=== PATIENT | female | born 1965 | race Caucasian/White ===

== ENCOUNTER → 2016-12-15 | Outpatient (REF) | payer OTHER ==
[2016-12-15 10:45] LABS: BASOPHILS % (AUTO) 0 % (0-2); EOSINOPHILS # (AUTO) 0.3 10^3uL; EOSINOPHILS % (AUTO) 4 % (0-4); LYMPHOCYTES # (AUTO) 3.7 X10^3; MEAN CORPUSCULAR HEMOGLOBIN 30.3 PG (26.0-34.0); MEAN CORPUSCULAR HGB CONC 33.3 g/dL (31.0-37.0); MEAN CORPUSCULAR VOLUME 91 FL (80-100); MEAN PLATELET VOLUME 10.5 FL (6.0-9.5); MONOCYTES # (AUTO) 0.6 X10^3; MONOCYTES % (AUTO) 7 % (3-11); NEUTROPHILS # (AUTO) 3.8 X10^3; NEUTROPHILS % (AUTO) 45 % (51-67); PLATELET COUNT 279 10^3uL (150-450); WHITE BLOOD COUNT 8.35 10^3uL (4.0-11.0)
[2016-12-15 10:51] LABS: ALBUMIN 4.6 g/dL (3.4-5.0); ANION GAP 16.6 MEQ/L (3-15); CALCULATED IONIZED CALCIUM 4.3 mg/dL (3.8-4.6); TOTAL PROTEIN 7.8 g/dL (6.4-8.5)
== END ==
LOC: LAB 10:00
PROVIDERS: ATTEND Nurse Practitioner Family
DX: R53.83 Other fatigue (principal); E03.4 Atrophy of thyroid (acquired)
CPT/HCPCS: 80053; 84443; 85025

== ENCOUNTER → 2017-01-03 | Outpatient (CLI) | payer OTHER | LOC: RAD 10:28 | PROVIDERS: ATTEND Family Medicine | DX: Z12.31 Encounter for screening mammogram for malignant neoplasm of breast (principal); H92.02 Otalgia, left ear | CPT/HCPCS: 70480; 76376; G0202 ==

== ENCOUNTER → 2017-02-14 | Outpatient (REF) | payer OTHER ==
[2017-02-14 08:19] LABS: BASOPHILS % (AUTO) 0 % (0-2); EOSINOPHILS # (AUTO) 0.3 10^3uL; EOSINOPHILS % (AUTO) 4 % (0-4); LYMPHOCYTES # (AUTO) 2.9 X10^3; MEAN CORPUSCULAR HEMOGLOBIN 30.3 PG (26.0-34.0); MEAN CORPUSCULAR HGB CONC 33.2 g/dL (31.0-37.0); MEAN CORPUSCULAR VOLUME 91 FL (80-100); MEAN PLATELET VOLUME 10.2 FL (6.0-9.5); MONOCYTES # (AUTO) 0.6 X10^3; MONOCYTES % (AUTO) 8 % (3-11); NEUTROPHILS # (AUTO) 3.6 X10^3; NEUTROPHILS % (AUTO) 49 % (51-67); PLATELET COUNT 240 10^3uL (150-450)
== END ==
LOC: LAB 08:01
PROVIDERS: ATTEND Nurse Practitioner Family
DX: R04.0 Epistaxis (principal); E03.4 Atrophy of thyroid (acquired); E11.42 Type 2 diabetes mellitus with diabetic polyneuropathy
CPT/HCPCS: 83036; 84443; 85025

== ENCOUNTER 2017-02-22 03:00 | Emergency (ER) | payer OTHER ==
[~2017-02-22] VITALS: Ht 154.9 cm; Wt 106.1 kg
[~2017-02-22 03:00] MED LIST: ALBU8.5H4 IH; ASPI-860 PO; ATOR40TA2 PO; AZIT250T81 PO; BUTA1CAP43 PO; DICL75TA2 PO; LEVO100T; LEVO150T6 PO; LEVO75TA PO; LISI5TAB14 PO; METF500T4 PO; METH4TAB27 PO; METO-311 PO; MTF500TCR PO; ONDAN4ODT PO; PRCD5U GT; PROM25TA5 PO; TRM50T
--- OUTSIDE RECORDS SUMMARY | 2017-02-22 03:03 | XMS REPORT | Continuity of Care Document ---
Author Author [facility] Address Unknown Phone Unavailable Care Team Providers Care End Trimmer Name Role Phone JENNIFER VALENCIA MD PCP [phone] Insurance Providers Payer Name Policy Number Subscriber Name Relationship [employer] [id number] Tomasa Bazan Self / Same As Patient Advance Directives Directive Response Recorded Date/Time Advanced Directives No 08/04/16 9:16am Chief Complaint and Reason for Visit Chief Complaint Cardiac Complaint Reason for Visit [id number] Problems Active Problems Medical Problem Onset Date Status Acute bronchitis 01/06/2013 Acute Costochondritis Unknown Acute Dehydration Unknown Acute Diabetes mellitus type 2 in obese Unknown Acute Encounter for screening colonoscopy Unknown Acute Hyperlipidemia Unknown Acute Hypertension Unknown Acute Migraine Unknown Acute Nausea and vomiting 10/25/2012 Acute Obesity Unknown Acute Medications Current Home Medications Medication Dose Units Route Directions Days/Qty Instructions Start Date Levothyroxine Sodium 150 Mcg 150 Mcg ORAL Daily@0700 08/05/15 Metformin Hcl (Glucophage Xr) 500 Mg 1,000 Mg ORAL Twice A Day 08/05 Atorvastatin Calcium 40 Mg 40 Mg ORAL Daily 06/11/16 Lisinopril (Zestril) 5 Mg 5 Mg ORAL Daily 06/11/16 Aspirin 81 Mg 81 Mg ORAL Daily 06/11/16 Past Home Medications Medication Directions Ordered Status Tramadol Hcl (Ultram) 50 Mg Tablet, 09/25/12 Discontinued Levothyroxine Sodium 100 Mcg Tablet, 09/25/12 Discontinued Promethazine Hcl 25 Mg Tablet, 1 Tab Oral Q 6H Prn 09/25/12 Discontinued Ondansetron Hcl 4 Mg Tab, 1 - 2 Tab Oral Every 6 Hours as needed 10/25/12 Discontinued Levothyroxine Sodium 75 Mcg Tablet, 100 Mcg Oral Daily 01/06/13 Discontinued Azithromycin 6 Tab/Pkt Tablet, 250 Mg Oral See Instructions 01/06/13 Discontinued Promethazine/Codeine (Promethazine/Codeine 6.25MG-10MG/5ML) 5 Ml Syrp, 5 - 10 Ml G Tube Every 6 Hours as needed 01/06/13 Discontinued Methylprednisolone 21 Tab/Pkt Tablet, 21 Tab Oral As Directed 01/06/13 Discontinued Albuterol Sulfate 8.5 Gm Hfa.aer.ad, 8.5 Gm Respiratory (Inhalation) Every 4HRS as needed 01/06/13 Discontinued Metformin Hcl (Glucophage) 500 Mg Tablet, 500 Mg Oral Daily 08/04/15 Discontinued Butalbit/Acetamin/Caff/Codeine 1 Each Capsule, 1 Each Oral Twice A Day as needed for Headache 11/22/15 Discontinued Metoclopramide Hcl 10 Mg Tablet, 10 Mg Oral Twice A Day as needed for Na 01/06 Discontinued Diclofenac Sodium 75 Mg Tablet.dr, 75 Mg Oral Twice A Day 06/11/16 Discontinued Social History Social History Problem Response Recorded Date/Time Onset Date Status Exposure to occupational hazards No 08/04/2015 11:52pm Query Response Start Date Stop Date Smoking Status Former smoker Hospital Discharge Instructions No hospital discharge instructions. Plan of Care Discharge Date 08/04/16 11:22am Disposition 01 HOME OR SELF-CARE Condition at Discharge Stable Instructions/Education Provided Chest Pain (ED) Costochondritis (ED) Prescriptions See Medication Section Referrals JENNIFER VALENCIA MD - Additional Instructions/Education Your cardiac tests today were normal. Your chest pain may be due to inflammation of your rib cartilages as we discussed, something called costochondritis. If this continues to be bothersome, you may treat it by taking Motrin 800 mg 3 times a day. You should also contact Dr. Collado's office later today to arrange follow-up care. Because you have risk factors for coronary artery disease, he may want you to have a stress test and an echocardiogram to complete your evaluation. If you have more typical angina type symptoms including persistent chest pain pressure or heaviness lasts more than just a few seconds, typically 5 or 10 minutes or longer, that's associated with nausea vomiting sweating, radiation of pain in your shoulders or arms neck trauma or back, with shortness of breath, you should call 911 or seek immediate medical attention. He should continue to take aspirin 81 mg every day for prevention of stroke and heart attack. Some of your test results may not be complete prior to your leaving the Emergency Department. The Emergency Department is not authorized to give test results over the phone. Please contact the doctor's office listed in this packet of information for your final results. Follow up with your primary care physician or return to the Emergency Department for worsening or worrisome symptoms. * Emergency Department phone number: [phone], x [phone]* MEDICAL RECORD If you need copies of your X-rays, call [phone]. If you need copies of your medical record, including lab results, a signed authorization for release of records will be required. A telephone call for release of Health Information is not allowed. BILLING Billing can sometimes be confusing and frustrating. To help avoid confusion in the future, please take a moment to acquaint yourself with the billing parties for services. SERVICE BILLING [employer] Emergency Room Services [facility] Physician Services [facility] X-[facility] Patients will receive bills for services from the appropriate provider. If you have any questions about your [facility] bill, our staff will be happy to assist you. Please call [phone], and ask for the billing department. THANK YOU for choosing [facility] as your emergency care provider! Care Plan and Goals ~~Discharge Care Plan~~ Problem: Chest, epigastric or chest wall pain Goal: Decreased pain Instructions: Take medication(s) as directed. Follow home discharge instructions. Follow up with primary care physician or corporate real estate specialist as directed. Functional Status No functional status results. Allergies, Adverse Reactions, Alerts No known allergies. Immunizations Name Given Type Status Date Influenza Vaccine Received if Current 10/03/15 Historical Historical Vital Signs Acute Vital Signs Vital Response Date/Time Temperature (Fahrenheit) 97.4 08/04/2016 11:27am Pulse 68 bpm 08/04/2016 11:27am Respirations 20 08/04/2016 11:27am Height 5 ft 1 in Weight 231 lb Body Mass Index 43.0 kg/m^2 Results Laboratory Results Test Name Result Units Flags Reference Collection Date/Time Result Date/ Time Comments White Blood Count 6.92 10^3uL 4.0-11.0 08/04/2016 9:3008/04/2016 9: 48am Red Blood Count 3.87 10^6uL L 4.00-5.00 08/04/2016 9:3008/04/2016 9: 48am Hemoglobin 12.0 g/dL 12.0-15.5 08/04/2016 9:3008/04/2016 9:48am Hematocrit 36.00 % 35.00-45.00 08/04/2016 9:3008/04/2016 9:48am Mean Corpuscular Volume 93 FL 80-100 08/04/2016 9:3008/04/2016 9: 48am Mean Corpuscular Hemoglobin 31.0 PG 26.0-34.0 08/04/2016 9:302015 9:48am Mean Corpuscular Hemoglobin Concent 33.3 g/dL 31.0-37.0 08/04/2016 9: 3008/04/2016 9:48am Red Cell Distribution Width 13.0 % 11.8-15.6 08/04/2016 9:302015 9:48am Platelet Count 221 10^3uL 150-450 08/04/2016 9:3008/04/2016 9:48am Mean Platelet Volume 10.2 FL H 6.0-9.5 08/04/2016 9:3008/04/2016 9: 48am Neutrophils (%) (Auto) 59 % 51-67 08/04/2016 9:3008/04/2016 9:48am Lymphocytes (%) (Auto) 30 % 20-46 08/04/2016 9:30am 08/04/2016 9:48am Monocytes (%) (Auto) 7 % 3-11 08/04/2016 9:30am 08/04/2016 9:48am Eosinophils (%) (Auto) 4 % 0-4 08/04/2016 9:30am 08/04/2016 9:48am Basophils (%) (Auto) 0 % 0-2 08/04/2016 9:30am 08/04/2016 9:48am Neutrophils # (Auto) 4.1 X10^3 08/04/2016 9:30am 08/04/2016 9:48am Lymphocytes # (Auto) 2.1 X10^3 08/04/2016 9:30am 08/04/2016 9:48am Monocytes # (Auto) 0.5 X10^3 08/04/2016 9:30am 08/04/2016 9:48am Eosinophils # (Auto) 0.3 10^3uL 08/04/2016 9:30am 08/04/2016 9:48am Basophils # (Auto) 0.0 10^3uL 08/04/2016 9:30am 08/04/2016 9:48am Prothrombin Time 12.1 SEC 11.6-14.2 08/04/2016 9:30am 08/04/2016 9: 58am Prothromb Time International Ratio 0.9 0.8-1.4 08/04/2016 9:30am 9:58am D-Dimer 0.43 ug/mL *H 0.00-0.41 08/04/2016 9:30am 08/04/2016 9:58am Results called to [facility] who read back the results. Called by Malathi Hill at [phone] Urine Collection Type CLEAN CATCH 08/04/2016 10:45am 08/04/2016 11: 08am Urine Color Yellow 08/04/2016 10:45am 08/04/2016 11:02am Urine Clarity Clear 08/04/2016 10:45am 08/04/2016 11:02am Urine pH 6.0 5.0 - 8.0 08/04/2016 10:45am 08/04/2016 11:02am Urine Specific Jordan 1.025 1.005-1.030 08/04/2016 10:45am 2015 11:02am Urine Protein Negative Negative 08/04/2016 10:45am 08/04/2016 11: 02am Urine Glucose (UA) Negative Negative 08/04/2016 10:45am 08/04/2016 11 :02am Urine RBC (Auto) Negative Negative 08/04/2016 10:45am 08/04/2016 11: 02am Urine Ketones Negative Negative 08/04/2016 10:45am 08/04/2016 11: 02am Urine Nitrite Negative Negative 08/04/2016 10:45am 08/04/2016 11: 02am Urine Bilirubin Negative Negative 08/04/2016 10:45am 08/04/2016 11: 02am Urine Urobilinogen 0.2 mg/dL 0.2-1.0 08/04/2016 10:45am 08/04/2016 11: 02am Urine Leukocyte Esterase Negative Negative 08/04/2016 10:45am 2015 11:02am Sodium Level 145 mmol/L 135-150 08/04/2016 9:30am 08/04/2016 10:19am Potassium Level 4.5 mmol/L 3.5-5.1 08/04/2016 9:30am 08/04/2016 10: 19am Chloride Level 107 mmol/L 98-108 08/04/2016 9:30am 08/04/2016 10:19am Carbon Dioxide Level 25 mmol/L 22-08/04/2016 9:30am 08/04/2016 10: 19am Anion Gap 17.2 MEQ/L H 3-15 08/04/2016 9:30am 08/04/2016 10:19am Blood Urea Nitrogen 19 mg/dL H 7-18 08/04/2016 9:30am 08/04/2016 10: 19am Creatinine 0.72 mg/dL 0.6-1.2 08/04/2016 9:30am 08/04/2016 10:19am BUN/Creatinine Ratio 26 H 10-20 08/04/2016 9:30am 08/04/2016 10:19am Estimat Glomerular Filtration Rate 103.3 08/04/2016 9:30am 2015 10:19am Estimated GFR (Non- 85.4 08/04/2016 9:30am 2015 10:19am Glucose Level 102 mg/dL # 70-110 08/04/2016 9:3008/04/2016 10:19am Calculated Osmolality 282 mosm/L 280-300 08/04/2016 9:3008/04/2016 10:19am Calcium Level 9.4 mg/dL 8.8-10.8 08/04/2016 9:3008/04/2016 10:19am Calcium/Ionized Calcium Ratio 4.2 mg/dL 3.8-4.6 08/04/2016 9:3008/04 10:19am Total Bilirubin 0.4 mg/dL 0.1-1.0 08/04/2016 9:3008/04/2016 10:19am Alkaline Phosphatase 65 U/L 38-126 08/04/2016 9:3008/04/2016 10: 19am Aspartate Amino Transf (AST/SGOT) 26 U/L 15-37 08/04/2016 9:30am 2015 10:19am Alanine Aminotransferase (ALT/SGPT) 33 U/L 30-65 08/04/2016 9:30 10:19am Total Creatine Kinase 283 U/L *H 30-135 08/04/2016 9:3008/04/2016 10: 19am Results called to [facility] who read back the results. Called by Malathi Hill at 1018 Creatine Kinase MB 3.2 ng/mL 0.0-6.0 08/04/2016 9:3008/04/2016 10: 26am Troponin I < 0.012 ng/mL 0.010-0.080 08/04/2016 9:3008/04/2016 10: 26am OL-Qra-Z-Type Natriuretic Peptide 182 pg/mL H 0-125 08/04/2016 9:30 10:26am <300 ng/mL - HF unlikely Age <50 years, NT-proBNP >450 pg/mL - HF Likely Age 50-75 yrs, NT-proBNP >900 pg/mL - HF Likely Age >75 yrs, NT-proBNP >1800 - HF likely Total Protein 7.0 g/dL 6.4-8.5 08/04/2016 9:30am 08/04/2016 10:19am Albumin 4.2 g/dL 3.4-5.0 08/04/2016 9:30am 08/04/2016 10:19am Albumin/Globulin Ratio 1.500 1.1-1.8 08/04/2016 9:30am 08/04/2016 10: 19am Procedures No known history of procedures. Encounters Encounter Location Arrival/Admit Date Discharge/Depart Date Attending Provider Registered Emergency Room [facility] 08/04/16 9:09am KATHY BUSBY DO Registered Clinic [facility] 08/04/16 8:55am KATHY BUSBY DO Recent Diagnosis
[2017-02-22] MEDS ORDERED: ONDANSETRON 2 MG/ML (Z0FRAN) 2 ML VIAL IV ONE (03:20)
[2017-02-22] MEDS ORDERED: NS IV 500 ML 500 ML IV SCH (03:20)
[2017-02-22] MEDS ORDERED: SODIUM CHLORIDE FLUSH 3 ML SYR IV ONE (03:20)
[2017-02-22] MEDS ORDERED: SODIUM CHLORIDE FLUSH 10 ML SYR IV PRN (03:20)
[2017-02-22 03:36] LABS: BASOPHILS % (AUTO) 0 % (0-2); EOSINOPHILS # (AUTO) 0.2 10^3uL; EOSINOPHILS % (AUTO) 2 % (0-4); LYMPHOCYTES # (AUTO) 2.9 X10^3; MEAN CORPUSCULAR HEMOGLOBIN 30.1 PG (26.0-34.0); MEAN CORPUSCULAR HGB CONC 33.7 g/dL (31.0-37.0); MEAN CORPUSCULAR VOLUME 89 FL (80-100); MEAN PLATELET VOLUME 10.1 FL (6.0-9.5); MONOCYTES # (AUTO) 0.6 X10^3; MONOCYTES % (AUTO) 7 % (3-11); NEUTROPHILS # (AUTO) 5.1 X10^3; NEUTROPHILS % (AUTO) 58 % (51-67); PLATELET COUNT 259 10^3uL (150-450); WHITE BLOOD COUNT 8.81 10^3uL (4.0-11.0)
[2017-02-22 03:45] LABS: ALBUMIN 4.7 g/dL (3.4-5.0); ALKALINE PHOSPHATASE 89 U/L (38-126); BUN/CREATININE RATIO 20 (10-20); CALCULATED IONIZED CALCIUM 3.9 mg/dL (3.8-4.6); LIPASE* 93 U/L (23-300); TOTAL PROTEIN 8.2 g/dL (6.4-8.5)
[2017-02-22 04:21] LABS: BILIRUBIN,URINE Negative (Negative); CLARITY,URINE Clear; COLOR,URINE Yellow; GLUCOSE, URINE (UA) Negative (Negative); LEUKOCYTE ESTERASE ,URINE Negative (Negative); PH,URINE 5.5 (5.0 - 8.0); UROBILINOGEN,URINE 0.2 mg/dL (0.2-1.0)
[2017-02-22 04:40] LABS: RBC,URINE 0-2 /HPF; URINE CENTRIFUGED VOLUME 12 mL
[2017-02-22] MEDS ORDERED: ED- ONDANSETRON ODT 4 MG (ZOFRAN) 4 TABLETS/BTL PO ONE (04:45)
[2017-02-22 05:01] VITALS: BP 150/93
== END 2017-02-22 05:00 | disposition home or self-care (01) ==
LOC: ED 03:02
DX: R11.2 Nausea with vomiting, unspecified (principal)
CPT/HCPCS: 36415; 80053; 81003; 81015; 83690; 85025; 86140; 96374; 99284; J2405; J7040; 99282

== ENCOUNTER → 2017-04-08 | Outpatient (REF) | payer OTHER ==
[2017-04-08 09:42] LABS: BASOPHILS % (AUTO) 0 % (0-2); EOSINOPHILS # (AUTO) 0.1 10^3uL; EOSINOPHILS % (AUTO) 2 % (0-4); LYMPHOCYTES # (AUTO) 2.5 X10^3; MEAN CORPUSCULAR HEMOGLOBIN 30.4 PG (26.0-34.0); MEAN CORPUSCULAR HGB CONC 33.2 g/dL (31.0-37.0); MEAN CORPUSCULAR VOLUME 91 FL (80-100); MEAN PLATELET VOLUME 10.3 FL (6.0-9.5); MONOCYTES # (AUTO) 0.5 X10^3; MONOCYTES % (AUTO) 7 % (3-11); NEUTROPHILS # (AUTO) 3.5 X10^3; NEUTROPHILS % (AUTO) 53 % (51-67); PLATELET COUNT 224 10^3uL (150-450); WHITE BLOOD COUNT 6.65 10^3uL (4.0-11.0)
[2017-04-08 10:05] LABS: ALBUMIN 4.3 g/dL (3.4-5.0); ANION GAP 14.3 MEQ/L (3-15); CALCULATED IONIZED CALCIUM 4.3 mg/dL (3.8-4.6); TOTAL PROTEIN 7.2 g/dL (6.4-8.5)
[2017-04-08 10:26] LABS: ERYTHROCYTE SEDIMENTATION RT* 15 mm/hr (0-21)
== END ==
LOC: LAB 09:07
PROVIDERS: ATTEND Nurse Practitioner Family
DX: G50.0 Trigeminal neuralgia (principal)
CPT/HCPCS: 80053; 85025; 85652; 86140